=== PATIENT | female | born 1940 | race Caucasian/White ===

== ENCOUNTER 2023-10-30 09:20 | Inpatient (IN) ==
--- NOTE | 2023-10-30 09:41 | Emergency Department Note ---
Impression & Plan Acute CVA (cerebrovascular accident) ED Provider Note Diagnosis: Cerebellar CVA Disposition: Admit CHIEF COMPLAINT: Dizziness HPI: Patient is an 83-year-old female presenting with complaint of dizziness. Patient states symptoms started for the past 3 to 4 days time. Patient states they are worse Sunday and Sunday and then better yesterday. Patient describes the sensation as lightheaded like she feels like she has got a pass out. Patient states at times she feels room spinning dizziness. Patient states this is only with movement and she does not feel room spinning sensation with being at rest. Patient is currently experiencing a headache in the forehead region. Patient is not on any blood thinners and her blood pressure is approximately 200 systolic. Patient denies any focal neurologic deficits arms or legs. Patient denies any active chest pain. PAST MEDICAL HISTORY: See Below PAST SURGICAL HISTORY: See Below SOCIAL HISTORY: See Below HOME MEDICATIONS: See Below ALLERGIES: See Below VITALS: See Below PHYSICAL EXAMINATION: GENERAL: Well appearing, well nourished, NAD, non-toxic. EYE EXAM: Normal conjunctiva. OROPHARYNX: Moist mucus membranes. Grossly normal dentition. NECK: Supple, LUNGS: Clear to auscultation. Normal chest wall mechanics. HEART: NSR ABDOMEN: Abdomen soft, non-tender, normo-active bowel sounds, no masses, no rebound or guarding BACK: No CVA TTP. SKIN: No rashes and no bruising. UPPER EXTREMITIES: Upper extremities are grossly normal LOWER EXTREMITIES: Grossly normal, no edema. NEURO EXAM: A&O x3,, normal speech, 5 out of 5 muscle strength upper and lower extremities bilaterally, Intact sensation upper and lower extremities bilaterally PSYCH: Cooperative MEDICAL DECISION MAKING: History obtained from: Patient ER Course: Patient is an 83-year-old female presenting with complaint of dizziness and lightheadedness. Patient states that symptoms have been ongoing since Sunday which was 4 days prior. Patient states that the dizziness sensation is only present with standing up. Patient's feels lightheaded currently but no active room spinning sensation. Patient is currently experiencing a headache. Patient found to be hypertensive upon arrival with a blood pressure above 200 systolic. Patient had no focal neurologic deficits. Patient given treatment for headache with Compazine and Benadryl. Patient also given meclizine which she threw up. Patient continued to have hypertension even after attempt to treat headache. Patient was given IV labetalol. Patient taken for CT of the head which shows acute to subacute posterior CVA. Patient outside any window for TNK or thrombolytic treatment due to symptoms starting 3 to 4 days prior. Will allow for permissive hypertension. Patient's case will be discussed with hospital service further treatment and evaluation. Labs (independently interpreted) are significant for: No significant electrolyte abnormalities Imaging results (independently interpreted): Chest x-ray clear EKG interpretation (independently interpreted): Normal sinus rhythm no ST segment elevation or depression Medications given: Compazine, Benadryl, normal saline bolus, labetalol x 2 Consultants: Hospitalist service Triage Nursing notes reviewed and agree them. Vital Signs: reviewed and remarkable for: Hypertension Past Med/Surg History Problem List (Updated 10/30/23 @ 11:14 by Chaitanya Jacob DO) Acute CVA (cerebrovascular accident) (Acute) Nocturia Overactive bladder NIDDY (non-insulin dependent diabetes mellitus in young) Cervical facet syndrome H/O knee surgery Hx of breast reduction, elective H/O thyroidectomy Cholecystectomy planned Glaucoma Hyperlipemia Hypothyroid Depression HTN (hypertension) Arthritis DDD (degenerative disc disease) Medical History (Updated 10/30/23 @ 11:14 by Chaitanya Jaocb DO) History of COVID-19 06/18/21 - fatigue, DONALDSON, sore throat Diabetes mellitus niddm Surgical History S/P cataract extraction bilat S/P eye surgery bilat Social History Smoking Status: Never smoker Second Hand Exposure: No; Do You Dip or Chew Tobacco: No; Hx Alcohol Use: Yes Alcohol type: hard liquor Hx Substance Use: No Preferred Language: Greek Communication Ability: Effective Visual Impairment: No Limitations Hearing Ability: Normal Impregnator And Drier Helper Required: No Beliefs That Will Affect Care: None marital status: Current Living Situation: Other Current Living Situation Comment: [facility] current occupational status: retired Feels Safe at Home: Yes Assistive Devices: Cane Allergies Allergies Allergy/AdvReac Type Severity Reaction Status Date / Time No Known Allergies Allergy Verified 10/22/23 10:10 Home Meds Home Medications Medication Instructions Recorded Confirmed atorvastatin 40 mg tablet 40 mg PO QAM 05/11/21 10/22/23 brimonidine 0.1 % eye drops 1 drp ophthalmic (eye) BID 05/11/21 10/22/23 difluprednate 0.05 % eye drops 1 drp ophthalmic (eye) QID 05/11/21 10/22/23 duloxetine 20 mg capsule,delayed 20 mg PO QAM 05/11/21 10/22/23 release (Cymbalta) levothyroxine 100 mcg capsule 100 mcg PO QAM 05/11/21 10/22/23 meloxicam 15 mg tablet 15 mg PO QAM 05/11/21 10/22/23 metformin 500 mg tablet 500 mg PO BID 05/11/21 10/22/23 olmesartan 20 mg tablet 20 mg PO QAM 05/11/21 10/22/23 vitamins A,C,Y-rode-dvtrjj 4,296 1 cap PO BID 05/11/21 10/22/23 mcg-226 mg-90 mg capsule (ICaps AREDS) Previous Rx's Medication Instructions Recorded amlodipine 5 mg tablet 5 mg PO DAILY #30 tabs 01/02/22 mirabegron 25 mg tablet,extended 25 mg PO DAILY Urinary urgency 03/05/23 release 24 hr (Myrbetriq) #30 tabs mirabegron 50 mg tablet,extended 50 mg PO DAILY #90 tabs 05/07/23 release 24 hr (Myrbetriq) nitrofurantoin 100 mg PO Q12H 5 days #10 caps 07/19/23 monohydrate/macrocrystals 100 mg capsule (Macrobid) Results & Data (ED) Vital Signs Vital Signs - 24 hr 10/30/23 09:28 10/30/23 09:30 10/30/23 09:42 Temperature 36.5 C Temperature Source Oral Pulse Rate 76 71 Respiratory Rate 18 Respiratory Effort / Characteristics Non-Labored Spontaneous Blood Pressure 216/97 H Blood Pressure [Right Arm] Blood Pressure Mean 136 Blood Pressure Mean [Right Arm] Blood Pressure Position Lying Pulse Oximetry 98 98 Oxygen Delivery Method Room Air Sepsis Recent Fever Within 48 Hours No Sepsis New/Unexplained Change in Mental Status No Sepsis Action Taken by Nursing No Action Required 10/30/23 09:42 10/30/23 09:54 10/30/23 10:11 Temperature 36.5 C Temperature Source Oral Pulse Rate 89 83 Respiratory Rate 16 19 Respiratory Effort / Characteristics Non-Labored Spontaneous Blood Pressure 212/92 H Blood Pressure [Right Arm] 216/97 H Blood Pressure Mean Blood Pressure Mean [Right Arm] 136 Blood Pressure Position Pulse Oximetry 98 100 Oxygen Delivery Method Room Air Sepsis Recent Fever Within 48 Hours Sepsis New/Unexplained Change in Mental Status Sepsis Action Taken by Nursing 10/30/23 10:29 10/30/23 10:45 10/30/23 11:01 Temperature Temperature Source Pulse Rate 74 70 72 Respiratory Rate Respiratory Effort / Characteristics Blood Pressure 217/92 H 185/115 H 181/86 H Blood Pressure [Right Arm] Blood Pressure Mean Blood Pressure Mean [Right Arm] Blood Pressure Position Pulse Oximetry Oxygen Delivery Method Sepsis Recent Fever Within 48 Hours Sepsis New/Unexplained Change in Mental Status Sepsis Action Taken by Nursing Laboratory Data 10/30/23 09:30 10/30/23 09:30 Lab Results 10/30/23 Range/Units 09:30 WBC 8.35 (4.8-10.8) K/ul RBC 5.09 (4.20-5.40) M/uL Hgb 14.0 (12.0-16.0) g/dl Hct 43.5 (37.0-47.0) % MCV 85.5 (80.0-100.0) fL MCH 27.5 (25.0-34.0) pg MCHC 32.2 (32.0-36.0) g/dL RDW Std Deviation 43.3 (36.4-46.3) fL RDW Coeff of Leila 13.9 (11.5-14.5) % Plt Count 217 (130-400) K/uL MPV 9.9 (9.4-12.4) fL Immature Gran % (Auto) 0.2 % Neut % (Auto) 61.8 % Lymph % (Auto) 25.5 % [place] % (Auto) 5.0 % Eos % (Auto) 6.8 % Baso % (Auto) 0.7 % Neut # (Auto) 5.15 (1.40-6.50) K/uL Lymph # (Auto) 2.13 (1.20-3.40) K/uL [place] # (Auto) 0.42 (0.11-0.59) K/uL Eos # (Auto) 0.57 H (0.00-0.50) K/uL Baso # (Auto) 0.06 (0.00-0.20) K/uL Immature Gran # (Auto) 0.02 (0.01-0.20) K/uL Sodium 139 (136-145) mmol/L Potassium 3.9 (3.5-5.1) mmol/L Chloride 107 (98-107) mmol/L Carbon Dioxide 22 (21-32) mmol/L Anion Gap 10 (3-11) BUN 26 H (6-23) mg/dl Creatinine 1.18 (0.6-1.2) mg/dl Est Cr Clr Drug Dosing 34.3 ml/min Est GFR ( Amer) 49.7 ml/min Est GFR (Non-Af Amer) 42.9 ml/min BUN/Creatinine Ratio 22.0 H (10-20) Glucose 164 H (70-99(Fasting)) mg/dl Calcium 9.8 (8.6-10.3) mg/dl Total Bilirubin 0.5 (0.2-1.0) mg/dl AST 22 (13-39) U/L ALT 21 (7-52) U/L Alkaline Phosphatase 128 H (34-104) U/L Troponin I High Sens 4.3 (0-14) pg/ml Total Protein 7.0 (6.0-8.3) gm/dl Albumin 4.5 (3.4-5.0) gm/dl Globulin 2.5 (2.5-4.0) gm/dl Albumin/Globulin Ratio 1.8 (0.9-2) Administered Medications Discontinued Medications Diphenhydramine HCl (Diphenhydramine 50 Mg/Ml Vial) 25 mg IV NOW STA Stop: 10/30/23 09:36 Last Admin: 10/30/23 09:50 Dose: 25 mg Documented By: CARLIE Sodium Chloride (Nss) 1,000 mls @ 999 mls/hr IV .Q1H1M SABRINA Stop: 10/30/23 10:45 Last Admin: 10/30/23 09:47 Dose: 999 mls/hr Documented By: CARLIE Labetalol HCl (Labetalol Hcl Iv 5 Mg/Ml 20ml) 10 mg IV NOW STA Stop: 10/30/23 10:07 Last Admin: 10/30/23 10:11 Dose: 10 mg Documented By: CARLIE Labetalol HCl (Labetalol Hcl Iv 5 Mg/Ml 20ml) 10 mg IV NOW STA Stop: 10/30/23 10:42 Last Admin: 10/30/23 10:45 Dose: 10 mg Documented By: CARLIE Meclizine HCl (Meclizine Hcl 25 Mg Tab) 25 mg PO NOW STA Stop: 10/30/23 09:36 Last Admin: 10/30/23 09:47 Dose: 25 mg Documented By: CARLIE Ondansetron HCl (Ondansetron Inj 2 Mg/Ml 2 Ml Vial) 4 mg IV NOW STA Stop: 10/30/23 10:02 Last Admin: 10/30/23 10:04 Dose: 4 mg Documented By: CARLIE Prochlorperazine (Prochlorperazine 5 Mg/Ml 2 Ml Vial) 5 mg IV NOW STA Stop: 10/30/23 09:36 Last Admin: 10/30/23 09:48 Dose: 5 mg Documented By: CARLIE Imaging Data Radiologist's Impression: Chest X-Ray 10/30/23 09:35 XR chest 1V portable HISTORY: dizziness COMPARISON: Chest 04/15/2021. FINDINGS: No pneumothorax. No pleural effusions. The lungs are clear. Prior cholecystectomy. The cardiac silhouette remains top normal in size. No evidence for pulmonary edema. No acute fractures. Mild elevation of the right hemidiaphragm. Degenerative changes within the right shoulder. IMPRESSION: No acute process. ACT 112: Negative or not required by law. Electronically signed by: Saturnino Singer M.D. 10/30/2023 10:[address] 10/30/23 09:35 CT head/brain wo con CLINICAL HISTORY: 83 years-old Female with HTN, headache, dizziness. Acute hypertension with headache and dizziness TECHNIQUE: Multiple axial CT images of the head were obtained without contrast. A dose lowering technique was utilized adhering to the principles of ALARA. CT DOSE: 547.75 mGy.cm COMPARISON: 01/02/2022. FINDINGS: No acute intracranial hemorrhage, midline shift, intracranial mass, hydrocephalus, or abnormal extra-axial collection. Involutional changes with suggestion of mild chronic microvascular ischemic disease. There is a 3 cm ill- defined hypodense focus noted involving the medial, mid to inferior aspects of the right cerebellar hemisphere The calvarium is intact. Postoperative changes of the left globe redemonstrated. The paranasal sinuses, mastoid air cells, and middle ear cavities are clear. IMPRESSION: 1. 3 cm acute to subacute appearing ischemic infarct of the right PICA vascular distribution. 2. No acute intracranial hemorrhage or midline shift. ACT 112: Negative or not required by law. The above report was generated using voice recognition software. It may contain grammatical, syntax or spelling errors. Electronically signed by: Cameron Reynolds M.D. 10/30/2023 10:47 AM Discharge Plan Visit Data Chief Complaint: Dizziness Stated Complaint: DIZZINESS, HEADACHE ED Provider: Chaitanya Jacob Discharge Problem: Acute CVA (cerebrovascular accident) Forms Stand Alone Forms: My [facility] Prescriptions Prescriptions: No Action ICaps AREDS [id number] capsule 1 cap PO BID duloxetine [Cymbalta] 20 mg capsule,delayed release(DR/EC) 20 mg PO QAM levothyroxine 100 mcg capsule 100 mcg PO QAM olmesartan 20 mg tablet 20 mg PO QAM metformin 500 mg tablet 500 mg PO BID meloxicam 15 mg tablet 15 mg PO QAM atorvastatin 40 mg tablet 40 mg PO QAM difluprednate 0.05 % drops 1 drp ophthalmic (eye) QID Rx Instructions: start 24 hours after surgery brimonidine 0.1 % drops 1 drp ophthalmic (eye) BID Myrbetriq 25 mg tablet extended release 24 hr 25 mg PO DAILY Qty: 30 0RF Rx Instructions: Take one tablet daily. nitrofurantoin monohyd/m-cryst [Macrobid] 100 mg capsule 100 mg PO Q12H 5 Days Qty: 10 0RF Rx Instructions: must administer with a meal/food Myrbetriq 50 mg tablet extended release 24 hr 50 mg PO DAILY Qty: 90 2RF Rx Instructions: Take one tablet daily. amlodipine 5 mg tablet 5 mg PO DAILY Qty: 30 0RF Referrals Referrals: Indigo Blevins MD [Primary Care Provider] -
[2023-10-30] MEDS: MECLIZINE HCL 25 MG TAB PO STA (09:47)
[2023-10-30] MEDS: SODIUM CHLORIDE 0.9% 1,000 ML IV SCH (09:47)
[2023-10-30 09:48] LABS: Basophils # (auto) 0.06 K/uL (0.00-0.20); Basophils % (auto) 0.7 %; Eosinophils # (auto) 0.57 K/uL (0.00-0.50); Eosinophils % (auto) 6.8 %; Hematocrit (blood only) 43.5 % (37.0-47.0); Immature Granulocytes # (auto) 0.02 K/uL (0.01-0.20); Immature Granulocytes % (auto) 0.2 %; Lymphocytes # (auto) 2.13 K/uL (1.20-3.40); Lymphocytes % (auto) 25.5 %; Mean Corpuscular Hemoglobin 27.5 pg (25.0-34.0); Mean Corpuscular Hgb Conc 32.2 g/dL (32.0-36.0); Mean Corpuscular Volume 85.5 fL (80.0-100.0); Mean Platelet Volume 9.9 fL (9.4-12.4); Monocytes # (auto) 0.42 K/uL (0.11-0.59); Neutrophils # (auto) 5.15 K/uL (1.40-6.50); Neutrophils % (auto) 61.8 %; Platelet Count 217 K/uL (130-400); RDW Coefficient of Variation 13.9 % (11.5-14.5); RDW Standard Deviation 43.3 fL (36.4-46.3); Red Blood Count 5.09 M/uL (4.20-5.40); White Blood Count 8.35 K/ul (4.8-10.8)
[2023-10-30] MEDS: PROCHLORPERAZINE 5 MG/ML 2 ML VIAL IV STA (09:48)
[2023-10-30] MEDS: diphenhydrAMINE 50 MG/ML VIAL IV STA (09:50)
[2023-10-30] MEDS: ONDANSETRON INJ 2 MG/ML 2 ML VIAL IV STA (10:04)
[2023-10-30 10:05] LABS: Albumin Globulin Ratio 1.8 (0.9-2); Albumin Level 4.5 gm/dl (3.4-5.0); Bilirubin,Total 0.5 mg/dl (0.2-1.0); Calcium 9.8 mg/dl (8.6-10.3); Creatinine Clr Calc Pharmacy 34.3 ml/min; Est GFR (African American) 49.7 ml/min; Est GFR (Non-African American) 42.9 ml/min; Globulin 2.5 gm/dl (2.5-4.0); Potassium 3.9 mmol/L (3.5-5.1)
[2023-10-30 10:11] LABS: Troponin I High Sensitivity 4.3 pg/ml (0-14)
[2023-10-30] MEDS: LABETALOL HCL IV 5 MG/ML 20ML IV STA ×2 (10:11→10:45)
--- NOTE | 2023-10-30 10:50 | CT Scan Report ---
CT head/brain wo con CLINICAL HISTORY: 83 years-old Female with HTN, headache, dizziness. Acute hypertension with headach e and dizziness TECHNIQUE: Multiple axial CT images of the head were obtained without contrast. A dose lowering tech nique was utilized adhering to the principles of ALARA. CT DOSE: 547.75 mGy.cm COMPARISON: 01/02/2022. FINDINGS: No acute intracranial hemorrhage, midline shift, intracranial mass, hydrocephalus, or abnormal extra- axial collection. Involutional changes with suggestion of mild chronic microvascular ischemic disease . There is a 3 cm ill-defined hypodense focus noted involving the medial, mid to inferior aspects of the right cerebellar hemisphere The calvarium is intact. Postoperative changes of the left globe redemonstrated. The paranasal sinuse s, mastoid air cells, and middle ear cavities are clear. IMPRESSION: 1. 3 cm acute to subacute appearing ischemic infarct of the right PICA vascular distribution. 2. No acute intracranial hemorrhage or midline shift. ACT 112: Negative or not required by law. The above report was generated using voice recognition software. It may contain grammatical, syntax o r spelling errors. Electronically signed by: Cameron Reynolds M.D. 10/30/2023 10:47 AM
--- NOTE | 2023-10-30 10:58 | XRay Report ---
XR chest 1V portable HISTORY: dizziness COMPARISON: Chest 04/15/2021. FINDINGS: No pneumothorax. No pleural effusions. The lungs are clear. Prior cholecystectomy. The card iac silhouette remains top normal in size. No evidence for pulmonary edema. No acute fractures. Mild elevation of the right hemidiaphragm. Degenerative changes within the right shoulder. IMPRESSION: No acute process. ACT 112: Negative or not required by law. Electronically signed by: Saturnino Singer M.D. 10/30/2023 10:57 AM
--- NOTE | 2023-10-30 11:08 | History & Physical Report ---
Date of Service October 30, 2023 Assessment & Plan (1) Acute CVA (cerebrovascular accident): Plan: Admit to the PCU on telemetry Currently stable and nontoxic-appearing Presented to the ED with progressive lightheadedness/dizziness/nausea with nonbloody emesis and headache since 10/26/23 Noted to be significant hypertensive on arrival with systolic blood pressures as high as 240 mmHg No acute EKG changes CT of the head without contrast obtained today notes a acute to subacute 3 cm ischemic infarct of the right PICA vascular distribution without signs of hemorrhage or midline shift Will obtain CTA of the head and neck with contrast, MRI of the brain without contrast, and CT on admission for further evaluation Received 2 doses 10 mg IV labetalol in the ED due to significant hypertension with systolic blood pressures in the 240s, blood pressure is currently stable with systolic blood pressure in the 180s For now continue with permissive hypertension for the next 24 hours but will have as needed IV labetalol for systolic blood pressure greater than 200 mmHg and/or diastolic greater than 110 mmHg Fall/aspiration precautions, PT/OT consults placed Will consult neurology to follow Was given 324 mg aspirin in the ED prior to admission, will continue with 81 mg daily tomorrow Had been on 40 mg atorvastatin daily, will give 80 mg now and plan to continue with 80 mg tomorrow, follow fasting lipid panel tomorrow morning Every 4 hours neuro checks Bilateral SHADY stockings for DVT prophylaxis Heart healthy/DM type II diet AM CBC, BMP, mag, PT/INR, fasting lipid panel, hemoglobin A1c (2) Cat bite of forearm: Plan: Patient was bitten by her cat on 10/29/2023 and has a small healing skin tear with surrounding erythema Patient confirms cat is up-to-date on vaccinations including rabies and patient had her last tetanus booster last year Will start Unasyn for now as she is still experiencing recurrent nausea/vomiting from her CVA Will transition her to p.o. Augmentin when nausea/vomiting has resolved Communication order placed to outline current erythema with a surgical marker for close monitoring moving forward (3) Hypothyroid: Plan: Continue levothyroxine (4) HTN (hypertension): Plan: Continue permissive hypertension as outlined in acute CVA plan (5) Diabetes mellitus: Plan: Hold metformin Monitor BSG ACHS, goal is [id number] Start CF of 50 and CR of 15 ACHS for now Adjust regimen as needed Plan The patient was discussed with Dr. Dougherty at the time of the admission History of Present Illness Chief Complaint: Dizziness, HTN Primary Care Provider: Indigo Blevins MD Ann is an 83-year-old female with a past medical history significant for hypertension, DMII, hyperlipidemia, hypothyroidism, depression, and glaucoma who presented to [facility] ED on 10/30/2023 with complaints of dizziness and hypertension which initially started on 10/26/2023. On arrival to the ED she was noted to be hypertensive at 216/97 but otherwise stable. Labs including CBC, CMP, and high-sensitivity troponin were unremarkable. CT of the head/brain without contrast was read as a 3 cm acute to subacute appearing ischemic infarct of the right PICA vascular distribution. No acute intracranial hemorrhage or midline shift. Chest x-ray was read as negative for acute findings. Prior to admission the patient had been given 1 L normal saline, 5 mg per oh chlor perazine, 4 mg IV Zofran, 25 mg p.o. meclizine, 25 mg diphenhydramine, 324 mg aspirin, and 2 doses of 10 mg IV labetalol. Patient was sitting in bed in no acute distress at time of exam with her sitting bedtime, history is obtained from both. The patient states that she initially felt mildly lightheaded/dizzy on 10/26/2023. Starting on 10/27/2023 the patient's symptoms significantly increased including lightheaded/dizziness with a sensation that the room was spinning at times, nausea with nonbloody emesis, intermittent headache, and right-sided upper extremity weakness. Her dizziness became so severe that she was concerned she would fall but did not actually fall at home. States that she has not been on the amlodipine for some time, has continued her home atorvastatin, metformin, and confirms she has not been on outpatient antihypertensives recently. Denies recent changes in vision, hearing, smell, but feels like her taste has been off over the past few days. Denies recent chest pain, shortness of breath, cough, abdominal pain, dysuria/hematuria, diarrhea, lower extremity swelling. When asked, she states that the move on right forearm erythema is due to a cat bite from her home cat which occurred yesterday (10/29/2023). She confirms that her cat is up-to-date on vaccinations including rabies and states that she received a tetanus booster last summer as her cat bit her on the leg. Denies recent fever/chills or pain at the site of the bite. Confirms she has no history of antibiotic allergies. From she is a full code and would want her to make medical decisions for her if she can make them herself. Please refer to Dr. Dougherty's attestation for any changes to the treatment plan Allergies Allergy/AdvReac Type Severity Reaction Status Date / Time No Known Allergies Allergy Verified 10/22/23 10:10 Home Medications Medication Instructions Recorded Confirmed Type atorvastatin 40 mg tablet 40 mg PO QAM 05/11/21 10/22/23 History brimonidine 0.1 % eye drops 1 drp ophthalmic (eye) BID 05/11/21 10/22/23 History difluprednate 0.05 % eye drops 1 drp ophthalmic (eye) QID 05/11/21 10/22/23 History duloxetine 20 mg capsule,delayed 20 mg PO QAM 05/11/21 10/22/23 History release (Cymbalta) levothyroxine 100 mcg capsule 100 mcg PO QAM 05/11/21 10/22/23 History meloxicam 15 mg tablet 15 mg PO QAM 05/11/21 10/22/23 History metformin 500 mg tablet 500 mg PO BID 05/11/21 10/22/23 History olmesartan 20 mg tablet 20 mg PO QAM 05/11/21 10/22/23 History vitamins A,C,G-nyha-dqqcux 4,296 1 cap PO BID 05/11/21 10/22/23 History mcg-226 mg-90 mg capsule (ICaps AREDS) amlodipine 5 mg tablet 5 mg PO DAILY #30 tabs 01/02/22 10/22/23 Rx mirabegron 50 mg tablet,extended 50 mg PO DAILY #90 tabs 05/07/23 10/22/23 Rx release 24 hr (Myrbetriq) dorzolamide 22.3 mg-timolol 6.8 1 drp OPB BID 10/30/23 History mg/mL eye drops Past Med/Surg History Problem List (Updated 10/30/23 @ 12:11 by Chaitanya Nuñez PA-C) Cat bite of forearm Acute CVA (cerebrovascular accident) (Acute) Nocturia Overactive bladder NIDDY (non-insulin dependent diabetes mellitus in young) Cervical facet syndrome H/O knee surgery Hx of breast reduction, elective H/O thyroidectomy Cholecystectomy planned Glaucoma Hyperlipemia Hypothyroid Depression HTN (hypertension) Arthritis DDD (degenerative disc disease) Medical History (Updated 10/30/23 @ 12:11 by Chaitanya Nuñez PA-C) History of COVID-19 06/18/21 - fatigue, DONALDSON, sore throat Diabetes mellitus niddm Surgical History S/P cataract extraction bilat S/P eye surgery bilat Social History Smoking Status: Never smoker Second Hand Exposure: No; Do You Dip or Chew Tobacco: No; Hx Alcohol Use: Yes Alcohol type: hard liquor Hx Substance Use: No Preferred Language: Latvian Communication Ability: Effective Visual Impairment: No Limitations Hearing Ability: Normal Hat Liner Required: No Beliefs That Will Affect Care: None marital status: Current Living Situation: Other Current Living Situation Comment: [facility] current occupational status: retired Feels Safe at Home: Yes Assistive Devices: Cane Physical Exam Physical Exam: Physical Exam: General: In no acute distress, stated age, well-nourished, nontoxic-appearing HEENT: Normocephalic, atraumatic, no scleral icterus, left pupil is misshapen from previous cataract surgery with right pupil round and reactive to light, moist mucus membranes, trachea midline, no thyromegaly Chest/Pulm: No respiratory distress, symmetrical chest expansion, clear breath sounds throughout Cardiac: RRR, no murmurs noted Abdomen: Negative for ascites and bruising, normoactive bowel sounds, soft, non-tender to palpation throughout Musculoskeletal: Symmetrical and without signs of acute trauma Extremities: Radial, dorsalis pedis, and posterior tibial pulses are intact and symmetrical, no edema noted in the BL LE's Skin: Patient with small scab on the right medial forearm due to recent cat bite with surrounding erythema without signs of drainage or fluctuance, no signs of tracking approximately Neuro: Alert and oriented to person, place, month, year, and president, no focal defects, CN II-XII tested and intact, positive pronator drift in the right upper extremity compared to left, 4+ strength in the right upper extremity with 5/strength in the left upper extremity, 5+ strength in the bilateral lower extremities, no tremors noted Psych: No acute distress, calm and cooperative during the exam Results & Data Results & Data Vital Signs (Past 12 Hours) Vital Signs Temp Pulse Resp BP BP Pulse Ox O2 Del Method 10/30/23 11:01 72 181/86 H 10/30/23 10:45 70 185/115 H 10/30/23 10:29 74 217/92 H 10/30/23 10:11 83 212/92 H 10/30/23 09:54 89 19 100 10/30/23 09:42 36.5 C 16 216/97 H 98 Room Air 10/30/23 09:42 98 Room Air 10/30/23 09:30 36.5 C 71 18 216/97 H 98 10/30/23 09:28 76 Laboratory Results Abnormal lab results 10/30/23 10/30/23 Range/Units 09:30 11:34 Eos # (Auto) 0.57 H (0.00-0.50) K/uL BUN 26 H (6-23) mg/dl BUN/Creatinine Ratio 22.0 H (10-20) Glucose 164 H (70-99(Fasting)) mg/dl POC Glucose 108 H (70-99) mg/dl Alkaline Phosphatase 128 H (34-104) U/L Diagnostic Findings Chest X-Ray 10/30/23 09:35 XR chest 1V portable HISTORY: dizziness COMPARISON: Chest 04/15/2021. FINDINGS: No pneumothorax. No pleural effusions. The lungs are clear. Prior cholecystectomy. The cardiac silhouette remains top normal in size. No evidence for pulmonary edema. No acute fractures. Mild elevation of the right hemidiaphragm. Degenerative changes within the right shoulder. IMPRESSION: No acute process. ACT 112: Negative or not required by law. Electronically signed by: Saturnino Singer M.D. 10/30/2023 10:[address] 10/30/23 09:35 CT head/brain wo con CLINICAL HISTORY: 83 years-old Female with HTN, headache, dizziness. Acute hypertension with headache and dizziness TECHNIQUE: Multiple axial CT images of the head were obtained without contrast. A dose lowering technique was utilized adhering to the principles of ALARA. CT DOSE: 547.75 mGy.cm COMPARISON: 01/02/2022. FINDINGS: No acute intracranial hemorrhage, midline shift, intracranial mass, hydrocephalus, or abnormal extra-axial collection. Involutional changes with suggestion of mild chronic microvascular ischemic disease. There is a 3 cm ill- defined hypodense focus noted involving the medial, mid to inferior aspects of the right cerebellar hemisphere The calvarium is intact. Postoperative changes of the left globe redemonstrated. The paranasal sinuses, mastoid air cells, and middle ear cavities are clear. IMPRESSION: 1. 3 cm acute to subacute appearing ischemic infarct of the right PICA vascular distribution. 2. No acute intracranial hemorrhage or midline shift. ACT 112: Negative or not required by law. The above report was generated using voice recognition software. It may contain grammatical, syntax or spelling errors. Electronically signed by: Cameron Reynolds M.D. 10/30/2023 10:47 AM ECG Additional Comments: Normal sinus rhythm without acute ST segment or T wave changes Code Status & VTE Plan Code Status Full code VTE Prophylaxis Plan VTE Prophylaxis will be ordered: Yes Supervising Physician Co-Signing Physician Notes Patient seen and examined, chart reviewed, case discussed with Chaitanya Nuñez PA-C and I agree with the assessment and plan as above except as otherwise noted Labs and images reviewed 83-year-old female with a past medical history of type II DM, hypothyroidism, hypertension, hyperlipidemia, depression, corneal transplant, and cervicalgia who presents to the ER with dizziness over 3-4 days. There were no focal strength or sensory deficits on initial ER assessment. 3-day duration of symptoms TNKase was not indicated. Patient endorses feeling lightheaded, like the room is spinning. CThead shows a 3 cm acute to subacute ischemic infarct of the right PICA. Trace RUE asymmetrical weakness on exam, otherwise no strenght or sensory deficits on admitting exam. MRI pending Angios pending DAPT x 3 weeks then statin monotherapy Additional recommendations pending angio evaluation Echo with bubble study pending Given duration of symptoms likely outside of need for pHTN parameters, decreased control parameters to 200/100 for 24 hours and then to typical goal of less than 180 Agree with above PG Care Time/CCT Total # of Minutes Spent Total Time Spent with Patient: Total time spent is greater than 50% in coordination of care (as documented) at patient's floor/unit and/or counseling patient: Coding [place] [address] INT INP/OBS CARE 375MIN Patient Type Established History Comprehensive Exam Comprehensive Medical Decision Making High Complexity Diagnoses Acute CVA (cerebrovascular accident) I63.9 Cat bite of forearm S51.859A; W55.01XA Hypothyroid E03.9 HTN (hypertension) I10 Diabetes mellitus E11.9
[2023-10-30] MEDS ORDERED: PHARMACIST DISCHARGE MED REC CONSULT PRN (11:15)
[2023-10-30] MEDS ORDERED: DEXTROSE 50% 50 ML SYRINGE IV PRN (11:18)
[2023-10-30] MEDS ORDERED: GLUCAGON FOR INJ 1 MG VIAL SQ PRN (11:18)
[2023-10-30] MEDS ORDERED: GLUCOSE 40% GEL 15 GM TUBE PO PRN (11:18)
[2023-10-30] MEDS ORDERED: CARBOHYDRATES FOR HYPOGLYCEMIA PO PRN (11:18)
[2023-10-30] MEDS ORDERED: GLUCOSE 10 TAB/TUBE PO PRN (11:18)
[2023-10-30] MEDS ORDERED: ACETAMINOPHEN 325 MG TAB PO PRN ×2 (11:19→15:00)
[2023-10-30] MEDS ORDERED: LABETALOL HCL IV 5 MG/ML 20ML IV PRN ×2 (11:20→12:20)
[2023-10-30] MEDS: ASPIRIN CHEW 324 MG PO STA (11:51)
[2023-10-30] MEDS ORDERED: ONDANSETRON INJ 2 MG/ML 2 ML VIAL IV PRN (11:53)
[2023-10-30] MEDS: OPTIRAY 320 100ml IV ONE (12:11)
[2023-10-30] MEDS: ACETAMINOPHEN 500 MG TAB PO STA (12:24)
--- NOTE | 2023-10-30 12:35 | CT Scan Report ---
NECK CTA HISTORY: acute CVA on CT head/brain TECHNIQUE: Multiaxial CT images of the neck were performed following the intravenous administration o f contrast to evaluate the major cervical vessels. 3D/MIP images were also obtained. Sagittal and cor onal reformats were reviewed. All measurements were calculated based on NASCET criteria. A dose low ering technique was utilized adhering to the principles of ALARA. COMPARISON STUDY: Head CT 10/30/2023. FINDINGS: The aortic arch and proximal great vessels are widely patent. There is again noted a focal hypodensity within the inferior right cerebellar hemisphere consistent with the acute to subacute in farct. There is focal high-grade stenosis/occlusion within the distal right posterior inferior cerebe llar artery likely corresponding to the area of infarct. There is mild irregularity within the lumen of the mid right posterior inferior cerebellar artery. In addition, there is multifocal areas of high -grade stenosis/occlusion within the proximal right vertebral artery from the takeoff to the level of the C6 vertebral body. This is highly suspicious for a vertebral artery dissection. The mid to dista l right vertebral artery appears patent. Mild irregularity within the distal vertebral arteries at th e C1-C2 levels as well as mild irregularity in the mid to distal bilateral internal carotid arteries. This favors fibromuscular dysplasia. Mild calcified plaque within the bilateral carotid bifurcations . However, no significant stenosis, occlusion, or dissection within the bilateral common carotid or i nternal carotid arteries. IMPRESSION: 1. 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 2. There is again noted a focal hypodensity within the inferior right cerebellar hemisphere consisten t with the acute to subacute infarct. There is focal high-grade stenosis/occlusion within the distal right posterior inferior cerebellar artery likely corresponding to the area of infarct. 3. No significant stenosis, occlusion, or dissection within the carotid arteries. 4. Mild irregularity within the distal vertebral arteries and mid to distal bilateral internal caroti d arteries suggestive of fibromuscular dysplasia. ACT 112: Negative or not required by law. Electronically signed by: Saturnino Singer M.D. 10/30/2023 12:33 PM
--- NOTE | 2023-10-30 12:43 | CT Scan Report ---
CTA ANGIOGRAPHY OF THE HEAD CLINICAL HISTORY: acute CVA on CT head/brain COMPARISON STUDY: Head CT performed earlier today. TECHNIQUE: Helical axial images of the head were obtained following uneventful intravenous administr ation of 118 cc of Optiray. Sagittal and coronal reconstructions were viewed as well as maximal inten sity projections on an independent 3-D workstation. Automated exposure control was utilized for the study. A dose lowering technique was utilized adhering to the principles of ALARA. FINDINGS: There is abrupt cut off of the right posterior inferior cerebellar artery on image 46 of 23 7 which corresponds to the infarct shown within the right cerebellar hemisphere on head CT performed earlier today. No additional sites of vessel occlusion are identified. No intracranial aneurysm. Ther e is moderate stenosis within the proximal left middle cerebral artery. There is moderate to severe s tenosis at the origin of the left P1 segment. There is no intracranial aneurysm. IMPRESSION: 1. 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 No additional sites of vessel occlusion within the intracranial circulation. 2. Multifocal stenoses within the intracranial circulation, as described above. ACT 112: Negative or not required by law. Electronically signed by: Yash Smith M.D. 10/30/2023 12:41 PM
[2023-10-30] MEDS: ATORVASTATIN 40 MG TAB PO STA (12:57)
[2023-10-30] MEDS: INSULIN ASPART PER UNIT CHARGE SC SCH (12:58)
[2023-10-30] MEDS: AMPICILLIN/SULBACTAM SOD 3,000 MG/100 ML BAG IV STA (13:05)
[2023-10-30] MEDS: CLOPIDOGREL BISULFATE 300 MG TAB PO STA (13:09)
--- NOTE | 2023-10-30 13:24 | Electrocardiogram Report ---
Test Reason : Blood Pressure : */* mmHG Vent. Rate : 77 BPM Atrial Rate : 77 BPM P-R Int : 158 ms QRS Dur : 84 ms QT Int : 376 ms P-R-T Axes : 53 -52 68 degrees QTcB Int : 425 ms Normal sinus rhythm Left anterior fascicular block Abnormal ECG When compared with ECG of 02-Jan-2022 10:51, No significant change was found Confirmed by Bhaskar Lyons ([id number]) on 10/30/2023 1:24:17 PM Referred By: REFERRED SELF Confirmed By: Bhaskar Lyons
--- NOTE | 2023-10-30 15:56 | XCELERA ---
[id number]___[id number]
[2023-10-30] MEDS: AMPICILLIN/SULBACTAM SOD 3,000 MG/100 ML BAG IV SCH (19:29)
[2023-10-30] MEDS: DULoxetine HCL 20 MG CAP PO SCH (21:06)
[2023-10-30] MEDS: DORZOLAMIDE/TIMOLOL 22.3/6.8MG/ML 10 ML BTL OPB SCH (21:06)
--- NOTE | 2023-10-30 22:24 | Magnetic Resonance Report ---
Exam(s): MRI HEAD Without Contrast EXAM: MR Head Without Intravenous Contrast CLINICAL HISTORY: Reason for exam: CVA on CT head/brain wo con. TECHNIQUE: Magnetic resonance images of the head/brain without intravenous contrast in multiple planes. COMPARISON: Reference is made to prior CT performed earlier on the same date. FINDINGS: Brain: Acute infarction involving the medial aspect of the right cerebellar hemisphere. No acute intracranial hemorrhage. Moderate cerebral volume loss. Ventricles: Unremarkable. No ventriculomegaly. Bones/joints: Unremarkable. No acute fracture. Sinuses: Unremarkable as visualized. No acute sinusitis. Mastoid air cells: Unremarkable as visualized. No mastoid effusion. Orbits: Unremarkable as visualized. IMPRESSION: Acute right cerebellar hemispheric infarct. Electronically signed by: Suleiman Perdomo MD 10/30/23 22:23 PM
[2023-10-31] MEDS: LEVOTHYROXINE SODIUM 100 MCG TABLET PO SCH (05:35)
[2023-10-31 07:06] LABS: Basophils # (auto) 0.06 K/uL (0.00-0.20); Basophils % (auto) 0.7 %; Eosinophils # (auto) 0.84 K/uL (0.00-0.50); Eosinophils % (auto) 9.4 %; Hematocrit (blood only) 35.9 % (37.0-47.0); Hemoglobin 11.9 g/dl (12.0-16.0); Immature Granulocytes # (auto) 0.02 K/uL (0.01-0.20); Immature Granulocytes % (auto) 0.2 %; Lymphocytes # (auto) 2.87 K/uL (1.20-3.40); Lymphocytes % (auto) 32.2 %; Mean Corpuscular Hemoglobin 27.8 pg (25.0-34.0); Mean Corpuscular Hgb Conc 33.1 g/dL (32.0-36.0); Mean Corpuscular Volume 83.9 fL (80.0-100.0); Mean Platelet Volume 9.8 fL (9.4-12.4); Monocytes # (auto) 0.65 K/uL (0.11-0.59); Monocytes % (auto) 7.3 %; Neutrophils # (auto) 4.46 K/uL (1.40-6.50); Neutrophils % (auto) 50.2 %; Platelet Count 196 K/uL (130-400); RDW Coefficient of Variation 14.2 % (11.5-14.5); RDW Standard Deviation 43.7 fL (36.4-46.3); Red Blood Count 4.28 M/uL (4.20-5.40)
[2023-10-31 07:19] LABS: BUN Creatinine Ratio 18.3 (10-20); Calcium 8.8 mg/dl (8.6-10.3); Chol HDL Ratio 2.5 (0-5); Creatinine Clr Calc Pharmacy 35.2 ml/min; Est GFR (African American) 51.3 ml/min; Est GFR (Non-African American) 44.3 ml/min; Magnesium 1.8 mg/dl (1.7-2.4); Potassium 3.7 mmol/L (3.5-5.1)
[2023-10-31 07:26] LABS: Prothrombin Time 10.8 Seconds (9.0-12.0)
[2023-10-31 07:53] LABS: Estimated Average Glucose 137 mg/dl; Hemoglobin A1C 6.4 % (4.5-5.6)
[2023-10-31] MEDS: CLOPIDOGREL BISULFATE 75 MG TAB PO SCH (08:26)
[2023-10-31] MEDS: ATORVASTATIN 40 MG TAB PO SCH (08:26)
[2023-10-31] MEDS: ASPIRIN 81 MG ECTAB PO SCH (08:27)
[2023-10-31] MEDS: VIBEGRON 75 MG TAB PO SCH (08:27)
--- NOTE | 2023-10-31 08:54 | Hospitalist Progress Note ---
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 - Systolic BP in 240s on admission, since resolved Permissive hypertension for 24 hours after admission but will have as needed IV labetalol for systolic blood pressure greater than 200 mmHg and/or diastolic greater than 110 mmHg Fall/aspiration precautions - PT/OT recommending d/c home with assistance from spouse as needed and [facility] (order placed by CM) Will consult neurology to follow Was given 324 mg aspirin in the ED prior to admission, will continue with 81 mg daily tomorrow Had been on 40 mg atorvastatin daily, will give 80 mg now and plan to continue with 80 mg - A1C stable, PT/INR WNL, lipid panel WNL - Echo showed no significant valvular disease, Grade 1 diastolic dysfunction, EF 65-70% Every 4 hours neuro checks (2) Cat bite of forearm: Plan: Patient was bitten by her cat on 10/29/2023 and has a small healing skin tear with surrounding erythema Patient confirms cat is up-to-date on vaccinations including rabies and patient had her last tetanus booster last year Will start Unasyn for now as she is still experiencing recurrent nausea/vomiting from her CVA Will transition her to p.o. Augmentin when nausea/vomiting has resolved Communication order placed to outline current erythema with a surgical marker for close monitoring moving forward (3) HTN (hypertension): Plan: Noted to be significantly hypertensive on admission with systolic blood pressures as high as 240 mmHg; since resolved Received 2 doses 10 mg IV labetalol in the ED due to significant hypertension with systolic blood pressures in the 240s Continue permissive hypertension as outlined in acute CVA plan - was on amlodipine at home (4) Diabetes mellitus: Plan: Hold metformin Monitor BSG ACHS, goal is [id number] Start CF of 50 and CR of 15 ACHS for now - A1C 10/31/23 6.4% Adjust regimen as needed Plan VTE ppx: Bilateral SHADY stockings Diet: Heart healthy/DM type II Code status: Full Code Chronic stable diagnoses: hypothyroidism - continue home levothyroxine overactive bladder - continue Gemtesa depression - continue Cymbalta Glaucoma - continue Cosopt Admission and Anticipated Discharge Date Admission Date: October 30, 2023 Review of Systems Review of Systems: See HPI Results & Data Results & Data Vital Signs (Past 12 Hours) Vital Signs Temp Pulse Pulse Resp BP BP Pulse Ox 10/31/23 07:05 36.6 C 70 17 146/79 H 98 10/31/23 03:28 36.9 C 70 18 120/77 94 10/31/23 00:11 64 10/30/23 22:46 36.9 C 72 18 121/71 96 O2 Del Method 10/31/23 07:05 Room Air 10/31/23 03:28 Room Air 10/31/23 00:11 10/30/23 22:46 Room Air PG Care Time/CCT Total # of Minutes Spent Total Time Spent with Patient: Total time spent is greater than 50% in coordination of care (as documented) at patient's floor/unit and/or counseling patient: Coding Diagnoses Acute CVA (cerebrovascular accident) I63.9 Cat bite of forearm S51.859A; W55.01XA HTN (hypertension) I10 Diabetes mellitus E11.9
--- NOTE | 2023-10-31 10:14 | Neurology Consultation ---
Date of Consultation October 31, 2023 Assessment & Plan (1) Acute CVA (cerebrovascular accident): History of Present Illness Attending Physician: Harinder Lozano MD History of Present Illness S:pt this morning feeling well with minimal symptoms. not much balance issue. walked with Physical therapy the entire [place] and only had slight imbalance with one turn. no weakness. no speech problem. MRI brain noted for ischemic rt PICA infart. CTA showing rt vert stenosis/block, maybe dissection (undetermined age). echo negative. pt clinically stable. pt does report having headache 5 days ago and taking ASA one time. no prior hx of stroke and she never took antiplatelet meds. Admission HPI: Ann is an 83-year-old female with a past medical history significant for hypertension, DMII, hyperlipidemia, hypothyroidism, depression, and glaucoma who presented to [facility] ED on 10/30/2023 with complaints of dizziness and hypertension which initially started on 10/26/2023. On arrival to the ED she was noted to be hypertensive at 216/97 but otherwise stable. Labs including CBC, CMP, and high-sensitivity troponin were unremarkable. CT of the head/brain without contrast was read as a 3 cm acute to subacute appearing ischemic infarct of the right PICA vascular distribution. No acute intracranial hemorrhage or midline shift. Chest x-ray was read as negative for acute findings. Prior to admission the patient had been given 1 L normal saline, 5 mg per oh chlor perazine, 4 mg IV Zofran, 25 mg p.o. meclizine, 25 mg diphenhydramine, 324 mg aspirin, and 2 doses of 10 mg IV labetalol. Patient was sitting in bed in no acute distress at time of exam with her sitting bedtime, history is obtained from both. The patient states that she initially felt mildly lightheaded/dizzy on 10/26/2023. Starting on 10/27/2023 the patient's symptoms significantly increased including lightheaded/dizziness with a sensation that the room was spinning at times, nausea with nonbloody emesis, intermittent headache, and right-sided upper extremity weakness. Her dizziness became so severe that she was concerned she would fall but did not actually fall at home. States that she has not been on the amlodipine for some time, has continued her home atorvastatin, metformin, and confirms she has not been on outpatient antihypertensives recently. Denies recent changes in vision, hearing, smell, but feels like her taste has been off over the past few days. Denies recent chest pain, shortness of breath, cough, abdominal pain, dysuria/hematuria, diarrhea, lower extremity swelling. When asked, she states that the move on right forearm erythema is due to a cat bite from her home cat which occurred yesterday (10/29/2023). She confirms that her cat is up-to-date on vaccinations including rabies and states that she received a tetanus booster last summer as her cat bit her on the leg. Denies recent fever/chills or pain at the site of the bite. Confirms she has no history of antibiotic allergies. From she is a full code and would want her to make medical decisions for her if she can make them herself. Allergies Allergy/AdvReac Type Severity Reaction Status Date / Time No Known Allergies Allergy Verified 10/22/23 10:10 Home Medications Medication Instructions Recorded Confirmed Type atorvastatin 40 mg tablet 40 mg PO QAM 05/11/21 10/30/23 History duloxetine 20 mg capsule,delayed 20 mg PO BID 05/11/21 10/30/23 History release (Cymbalta) levothyroxine 100 mcg capsule 100 mcg PO QAM 05/11/21 10/30/23 History metformin 500 mg tablet 500 mg PO BID 05/11/21 10/30/23 History olmesartan 20 mg tablet (Benicar) 20 mg PO UD 05/11/21 10/30/23 History amlodipine 5 mg tablet 5 mg PO UD 10/30/23 10/30/23 History dorzolamide 22.3 mg-timolol 6.8 1 drp OPB BID 10/30/23 10/30/23 History mg/mL eye drops mirabegron 50 mg tablet,extended 50 mg PO UD 10/30/23 10/30/23 History release 24 hr (Myrbetriq) Patient History Medical History (Updated 10/30/23 @ 12:11 by Chaitanya Nuñez PA-C) History of COVID-19 06/18/21 - fatigue, [place], sore throat Diabetes mellitus niddm Surgical History S/P cataract extraction bilat S/P eye surgery bilat Social History Smoking Status: Never smoker Second Hand Exposure: No; Do You Dip or Chew Tobacco: No; Hx Alcohol Use: No Hx Substance Use: No Preferred Language: Kyrgyz Communication Ability: Effective Visual Impairment: No Limitations Hearing Ability: Normal Circulation Representative Required: No Beliefs That Will Affect Care: None marital status: Current Living Situation: Spouse Current Living Situation Comment: [facility] current occupational status: retired Other Information That Helps Us Care for You: No Feels Safe at Home: Yes Safety Concerns: Feels Safe At This Time Assistive Devices: Cane and Walker Review of Systems Review of Systems: All systems reviewed & are unremarkable except as noted in Subjective Constitutional: as per Subjective / HPI Eyes: as per Subjective / HPI Ear, Nose, Mouth, Throat: as per Subjective / HPI Respiratory: as per Subjective / HPI Cardiovascular: as per Subjective / HPI Gastrointestinal: as per Subjective / HPI Musculoskeletal: as per Subjective / HPI Integumentary: as per Subjective / HPI Neurologic: as per Subjective / HPI Psychiatric: as per Subjective / HPI Endocrine: as per Subjective / HPI Hematologic / Lymphatic: as per Subjective / HPI Allergy / Immunological: as per Subjective / HPI Exam (Neuro) Physical Exam: HEENT: normocephalic Neuro: Mental: AOx4, fluent speech, normal comprehension, no apraxia, no L/R confusion, no neglect CN: PERRL, Full EOM, symmetric face, midline T/U/P, 5/5 SCM/traps. Motor: No abnormal movements, normal tone and bulk, 5/5 t/o bilaterally Sens: intact to touch b/l grossly, negative romberg. Coord: intact FNT b/l and finger to toes b/l. DTR: 2+ sym b/l Gait: intact grossly with narrow base. some difficulty with tandem (pt states this is chronic in nature). 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 pt clinically doing very well without much deficits. CTA finding of fibromuscular dysplasia appearance is likely incident and it is mild in nature. she likely had her initial stroke start 5 days or more when she was having headache at that time. Recommendations: -after consideration for anticoagulation based on CTA findings, since pt is doing very well and it is undetermined age and appears chronic in nature, DAPT is reasonable at this point rather than anticoagulation therapy. 2. antiplatelet therapy: * DAPT : Continue DAPT for 90 days . After that, can continue single antiplatelet therapy (either ASA or Plavix). 3. Images: TTE with bubble negative. arlin o consider checking renal artery stenosis in the future as routine work up given her report of mild fibromuscular dysplasia. 4. Permissive Hypertension for next 24 h rs. Keep SBP goal range less than 220. Avoid hypotension. Do not stop beta-yoan if on it. 6. Long-term SBP goal less than 130. 7. Plenty of hydration including IV flui d if possible (use isotonic solution) next 1-2 days. Avoid hypovolemia and hypotension. 8. Initiate DVT prevention therapy. 9. Avoid hypoglycemia, serum glucose goa l during hospitalization: 140-180. 10. Long-term HgA1c goal less than 7. 11. Start statin if not on it and no abs olute contraindication, long-term LDL goal less than 70. 12. Head of bed up 30 degrees if possibl e. 14. Telemetry monitoring. Consider detention cardiac monitoring, i.e. MCOT (mobile cardiac outpatient telemetry) or ICM (insertable panel monitor, e.g. LINQ), if never had intermediate frame tender cardiac monitoring done previously. And if found to have atrial flutter or fibrillation, should consider anticoagulation therapy if no contraindication. fall precaution. Chart reviewed I have spent more than 50% educating patient about potential diagnosis and neurological evaluation and coordinating care with patient's treatment team. Total time spent (including chart review and coordination of care): 60 min (this includes chart review). Results & Data Vital Signs (Past 12 Hours) Vital Signs Temp Pulse Pulse Resp BP BP Pulse Ox 10/31/23 07:05 36.6 C 70 17 146/79 H 98 10/31/23 03:28 36.9 C 70 18 120/77 94 10/31/23 00:11 64 10/30/23 22:46 36.9 C 72 18 121/71 96 O2 Del Method 10/31/23 07:05 Room Air 10/31/23 03:28 Room Air 10/31/23 00:11 10/30/23 22:46 Room Air PG Care Time/CCT Total # of Minutes Spent Total Time Spent with Patient: Total time spent is greater than 50% in coordination of care (as documented) at patient's floor/unit and/or counseling patient: Coding Level of Care Code 50132 IN/OBS CONSULT LVL 4,60M Diagnoses Acute CVA (cerebrovascular accident) I63.9
--- NOTE | 2023-10-31 10:26 | Pharmacy Report ---
- Date of Service October 31, 2023 - Pharmacy CVA/TIA Medication Review Medications to Prevent Stroke handout has been added to the patients discharge packet. Antiplatelet(s) * Aspirin 81 mg PO daily * Clopidogrel 75 mg PO daily Cholesterol * High intensity statin: atorvastatin 80 mg daily DVT Prophylaxis * SCD knee Therapeutic Anticoagulation * No history of Afib/Aflutter noted Type 2 Diabetes * Patient has T2DM, but per Dr. Ames, a diabetes medication with proven CVD benefit will be deferred to their outpatient provider due to familiarity with risks/benefits of such therapies. "Medications to prevent stroke" handout has already been added to the patient's discharge packet, which instructs the patient to follow up with their outpatient provider to evaluate which diabetes medication with proven CVD benefit is best for them
[2023-10-31 10:44] VITALS: RESP 18; TEMP 98.1; O2SAT 96
--- NOTE | 2023-10-31 12:51 | Discharge Summary ---
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 With vertebral artery dissection. Was given 324 mg aspirin in the ED prior to admission, continued with 81 mg daily Had been on 40 mg atorvastatin daily, increased to 80 mg daily - A1C stable, PT/INR WNL, lipid panel WNL - Echo showed no significant valvular disease, Grade 1 diastolic dysfunction, EF 65-70% - Neurology consulted - Continue DAPT x 90 days with ASA and Plavix with transition to single therapy - can consider checking for renal artery stenosis in future - can consider exterminator termite cardiac monitoring if needed - PT/OT recommending d/c home with assistance from spouse as needed and home health services from the [facility] (order placed by ) (2) Cat bite of forearm: Patient was bitten by her cat on 10/29/2023 and has a small healing skin tear with surrounding erythema Patient confirms cat is up-to-date on vaccinations including rabies and patient had her last tetanus booster last year Was started on Unasyn on admission due to nausea/vomiting from CVA Transition her to p.o. Augmentin upon discharge to be continued for 3 days erythema improved (3) HTN (hypertension): Noted to be significantly hypertensive on admission Received 2 doses 10 mg IV labetalol in the ED due to significant hypertension with systolic blood pressures in the 240s Continued permissive hypertension as outlined in acute CVA plan - continue home amlodipine on d/c (4) Diabetes mellitus: Held metformin Monitor BSG ACHS, goal is [id number] Start CF of 50 and CR of 15 ACHS for now - A1C 10/31/23 6.4% Adjust regimen as needed - continue home metformin on d/c - discussed with pharmacy recommend SGLT2i or GLP-1, deferring to PCP Plan Chronic stable diagnoses: hypothyroidism - continue home levothyroxine overactive bladder - continue Gemtesa depression - continue Cymbalta Glaucoma - continue Cosopt Discharge home 10/31/23 with home PT via [facility] where patient resides. CM sent order to the [facility]. Notes For Next Care Provider Discussed with pharmacy during hospitalization, recommend SGLT2i or GLP-1. Deferring to PCP at this time. Recent A1C 6.4%. Continue DAPT x 90 days with ASA and Plavix with transition to single therapy (either ASA or plavix). Can consider checking for renal artery stenosis in future and can consider exterminator termite cardiac monitoring if needed. Medication Changes From Visit Atorvastatin changed from 40 mg daily to 80 mg daily Aspirin 81 mg PO daily Clopidogrel 75 mg PO daily Admission HPI Per Admitting Provider Ann is an 83-year-old female with a past medical history significant for hypertension, DMII, hyperlipidemia, hypothyroidism, depression, and glaucoma who presented to [facility] ED on 10/30/2023 with complaints of dizziness and hypertension which initially started on 10/26/2023. On arrival to the ED she was noted to be hypertensive at 216/97 but otherwise stable. Labs including CBC, CMP, and high-sensitivity troponin were unremarkable. CT of the head/brain without contrast was read as a 3 cm acute to subacute appearing ischemic infarct of the right PICA vascular distribution. No acute intracranial hemorrhage or midline shift. Chest x-ray was read as negative for acute findings. Prior to admission the patient had been given 1 L normal saline, 5 mg per oh chlor perazine, 4 mg IV Zofran, 25 mg p.o. meclizine, 25 mg diphenhydramine, 324 mg aspirin, and 2 doses of 10 mg IV labetalol. Patient was sitting in bed in no acute distress at time of exam with her sitting bedtime, history is obtained from both. The patient states that she initially felt mildly lightheaded/dizzy on 10/26/2023. Starting on 10/27/2023 the patient's symptoms significantly increased including lightheaded/dizziness with a sensation that the room was spinning at times, nausea with nonbloody emesis, intermittent headache, and right-sided upper extremity weakness. Her dizziness became so severe that she was concerned she would fall but did not actually fall at home. States that she has not been on the amlodipine for some time, has continued her home atorvastatin, metformin, and confirms she has not been on outpatient antihypertensives recently. Denies recent changes in vision, hearing, smell, but feels like her taste has been off over the past few days. Denies recent chest pain, shortness of breath, cough, abdominal pain, dysuria/hematuria, diarrhea, lower extremity swelling. When asked, she states that the move on right forearm erythema is due to a cat bite from her home cat which occurred yesterday (10/29/2023). She confirms that her cat is up-to-date on vaccinations including rabies and states that she received a tetanus booster last summer as her cat bit her on the leg. Denies recent fever/chills or pain at the site of the bite. Confirms she has no history of antibiotic allergies. From she is a full code and would want her to make medical decisions for her if she can make them herself. Please refer to Dr. Dougherty's attestation for any changes to the treatment plan Admission Exam Per Admitting Provider General: In no acute distress, stated age, well-nourished, nontoxic-appearing HEENT: Normocephalic, atraumatic, no scleral icterus, left pupil is misshapen from previous cataract surgery with right pupil round and reactive to light, moist mucus membranes, trachea midline, no thyromegaly Chest/Pulm: No respiratory distress, symmetrical chest expansion, clear breath sounds throughout Cardiac: RRR, no murmurs noted Abdomen: Negative for ascites and bruising, normoactive bowel sounds, soft, non- tender to palpation throughout Musculoskeletal: Symmetrical and without signs of acute trauma Extremities: Radial, dorsalis pedis, and posterior tibial pulses are intact and symmetrical, no edema noted in the BL LE's Skin: Patient with small scab on the right medial forearm due to recent cat bite with surrounding erythema without signs of drainage or fluctuance, no signs of tracking approximately Neuro: Alert and oriented to person, place, month, year, and president, no focal defects, CN II-XII tested and intact, positive pronator drift in the right upper extremity compared to left, 4+ strength in the right upper extremity with 5/strength in the left upper extremity, 5+ strength in the bilateral lower extremities, no tremors noted Psych: No acute distress, calm and cooperative during the exam Discharge Exam The patient is awake, alert and oriented 3, well developed and well nourished, normocephalic and atraumatic, in no acute distress. Non-toxic appearing. HEENT- EOMI, mucous membranes moist. Hearing grossly intact. Heart-normal S1 and S2. No murmurs, rubs or gallops. Lungs-clear bilaterally, no respiratory distress, no accessory muscle use. Abdomen-normal bowel sounds and soft. No ascites noted. Non-tender. Extremities- no clubbing, cyanosis, or edema. Small scab and improved erythema with pen markings of right medial forearm. Neuro- no focal defects, CN II-XII tested and intact, 5+ strength in b/l UE, 5+ strength in the bilateral lower extremities, no tremors noted Rheumatologic-normal range of motion. Psychiatric-normal affect. Discharge Plan Discharge Items Patient Disposition: Home - Home Health Services Reason For Visit: ACUTE ISCHEMIC CVA, DIZZINESS Discharge Diagnosis: 1. Cerebrovascular accident 2. Cat bite of forearm 3. Hypertension 4. Diabetes mellitus Condition on Discharge: Good Activity: Per Instructions section Activity Comment: With home PT services Lifting: Gradually increase as tolerated Exercise/Sports: Gradually increase as tolerated Weightbearing: Full weightbearing Non-emergency contact: Primary Care Provider Call non-emergency contact if: you have any medication questions, your symptoms worsen, you have a fever, your wound has increased redness and your wound has increased drainage Follow-up/Referrals: Todd Dillon MD [Resident] - 11/05/23 12:45 pm (Dr. Blevins did not have any appts. I made an appt. with Dr. Dillon on 11/05/23 at 1245. ) Diet: Regular Addtl Attending Provider Instructions: Your medication changes after your CVA are as followed and sent to your pharmacy: - Atorvastatin changed from 40 mg daily to 80 mg daily - Aspirin 81 mg PO daily - Clopidogrel 75 mg PO daily You will continue aspirin and clopidogrel both for 90 days and then transition to one of them. You are to follow up with your PCP for potential change or addition of a diabetes medication - recommend SGLT2i or GLP-1. Your A1C was 6.4% during hospitalization. You are to take the antibiotic, Augmentin, for 3 days for your cat bite. Pending Studies at Discharge: No Stand-Alone Forms: My [facility] Calsys, Medications to Prevent Stroke Medications and DC Order Prescriptions: New clopidogrel 75 mg Tablet 75 mg PO QAM Qty: 30 0RF aspirin 81 mg Tablet,Delayed Release (Dr/Ec) 81 mg PO DAILY Qty: 30 0RF atorvastatin 80 mg tablet 80 mg PO QAM Qty: 30 0RF amoxicillin-pot clavulanate [Augmentin] 500-125 mg tablet 1 tab PO BID 3 Days Qty: 6 0RF Continued duloxetine [Cymbalta] 20 mg capsule,delayed release(DR/EC) 20 mg PO BID Rx Instructions: written for 20 mg po bid levothyroxine 100 mcg capsule 100 mcg PO QAM olmesartan [Benicar] 20 mg tablet 20 mg PO UD Rx Instructions: 20 mg po daily. Patient didnt seem sure of the medication, no fill history available. metformin 500 mg tablet 500 mg PO BID dorzolamide-timolol 22.3-6.8 mg/mL drops 1 drp OPB BID amlodipine 5 mg tablet 5 mg PO UD Rx Instructions: 5 mg po daily. Patient didnt seem sure about medication, last filled Feb 2023 for 30 day supply mirabegron [Myrbetriq] 50 mg tablet extended release 24 hr 50 mg PO UD Rx Instructions: took up to last week and stopped for procedure this week. Isn't sure if they'll restart her on it or not. Take one tablet daily. Discontinued atorvastatin 40 mg tablet 40 mg PO QAM Discharge Orders: Discharge Order (Routine); Ordered 10/31/23 Ordered By: Mary Jo Munoz/Other Patient Handouts: Managing Type 2 Diabetes, Symptoms of Stroke, What Is Ischemic Stroke? Admission Data Admit Date/Time: 10/30/23 11:14 Attending Provider: Harinder Lozano Admit Provider: Jose Manuel Dougherty Primary Care Provider: Indigo Blevins Other Providers: Jose Manuel Dougherty; Russell Mendieta Other Interventions: Discharge Summary Assessment (RN) Last Done: 10/31/23 14:20 Hospital Stay Data Consultations 10/30/23 11:23 ED Decision to Admit Stat 10/30/23 11:54 Consult Neurology Routine Diagnostic Imagining Performed Chest X-Ray 10/30/23 09:35 XR chest 1V portable HISTORY: dizziness COMPARISON: Chest 04/15/2021. FINDINGS: No pneumothorax. No pleural effusions. The lungs are clear. Prior cholecystectomy. The cardiac silhouette remains top normal in size. No evidence for pulmonary edema. No acute fractures. Mild elevation of the right hemidiaphragm. Degenerative changes within the right shoulder. IMPRESSION: No acute process. ACT 112: Negative or not required by law. Electronically signed by: Saturnino Singer M.D. 10/30/2023 10:[address] 10/30/23 09:35 CT head/brain wo con CLINICAL HISTORY: 83 years-old Female with HTN, headache, dizziness. Acute hypertension with headache and dizziness TECHNIQUE: Multiple axial CT images of the head were obtained without contrast. A dose lowering technique was utilized adhering to the principles of ALARA. CT DOSE: 547.75 mGy.cm COMPARISON: 01/02/2022. FINDINGS: No acute intracranial hemorrhage, midline shift, intracranial mass, hydrocephalus, or abnormal extra-axial collection. Involutional changes with suggestion of mild chronic microvascular ischemic disease. There is a 3 cm ill- defined hypodense focus noted involving the medial, mid to inferior aspects of the right cerebellar hemisphere The calvarium is intact. Postoperative changes of the left globe redemonstrated. The paranasal sinuses, mastoid air cells, and middle ear cavities are clear. IMPRESSION: 1. 3 cm acute to subacute appearing ischemic infarct of the right PICA vascular distribution. 2. No acute intracranial hemorrhage or midline shift. ACT 112: Negative or not required by law. The above report was generated using voice recognition software. It may contain grammatical, syntax or spelling errors. Electronically signed by: Cameron Reynolds M.D. 10/30/2023 10:47 AM Brain MRI 10/30/23 11:46 Exam(s): MRI HEAD Without Contrast EXAM: MR Head Without Intravenous Contrast CLINICAL HISTORY: Reason for exam: CVA on CT head/brain wo con. TECHNIQUE: Magnetic resonance images of the head/brain without intravenous contrast in multiple planes. COMPARISON: Reference is made to prior CT performed earlier on the same date. FINDINGS: Brain: Acute infarction involving the medial aspect of the right cerebellar hemisphere. No acute intracranial hemorrhage. Moderate cerebral volume loss. Ventricles: Unremarkable. No ventriculomegaly. Bones/joints: Unremarkable. No acute fracture. Sinuses: Unremarkable as visualized. No acute sinusitis. Mastoid air cells: Unremarkable as visualized. No mastoid effusion. Orbits: Unremarkable as visualized. IMPRESSION: Acute right cerebellar hemispheric infarct. Electronically signed by: Suleiman Perdomo MD 10/30/23 22:23 PM Head CTA 10/30/23 11:46 CTA ANGIOGRAPHY OF THE HEAD CLINICAL HISTORY: acute CVA on CT head/brain COMPARISON STUDY: Head CT performed earlier today. TECHNIQUE: Helical axial images of the head were obtained following uneventful intravenous administration of 118 cc of Optiray. Sagittal and coronal reconstructions were viewed as well as maximal intensity projections on an independent 3-D workstation. Automated exposure control was utilized for the study. A dose lowering technique was utilized adhering to the principles of ALARA. FINDINGS: There is abrupt cut off of the right posterior inferior cerebellar artery on image 46 of 237 which corresponds to the infarct shown within the right cerebellar hemisphere on head CT performed earlier today. No additional sites of vessel occlusion are identified. No intracranial aneurysm. There is moderate stenosis within the proximal left middle cerebral artery. There is moderate to severe stenosis at the origin of the left P1 segment. There is no intracranial aneurysm. IMPRESSION: 1. 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 No additional sites of vessel occlusion within the intracranial circulation. 2. Multifocal stenoses within the intracranial circulation, as described above. ACT 112: Negative or not required by law. Electronically signed by: Yash Smith M.D. 10/30/2023 12:41 PM Neck CTA 10/30/23 11:46 NECK CTA HISTORY: acute CVA on CT head/brain TECHNIQUE: Multiaxial CT images of the neck were performed following the intravenous administration of contrast to evaluate the major cervical vessels. 3D/MIP images were also obtained. Sagittal and coronal reformats were reviewed. All measurements were calculated based on NASCET criteria. A dose lowering technique was utilized adhering to the principles of ALARA. COMPARISON STUDY: Head CT 10/30/2023. FINDINGS: The aortic arch and proximal great vessels are widely patent. There is again noted a focal hypodensity within the inferior right cerebellar hemisphere consistent with the acute to subacute infarct. There is focal high- grade stenosis/occlusion within the distal right posterior inferior cerebellar artery likely corresponding to the area of infarct. There is mild irregularity within the lumen of the mid right posterior inferior cerebellar artery. In addition, there is multifocal areas of high-grade stenosis/occlusion within the proximal right vertebral artery from the takeoff to the level of the C6 vertebral body. This is highly suspicious for a vertebral artery dissection. The mid to distal right vertebral artery appears patent. Mild irregularity within the distal vertebral arteries at the C1-C2 levels as well as mild irregularity in the mid to distal bilateral internal carotid arteries. This favors fibromuscular dysplasia. Mild calcified plaque within the bilateral carotid bifurcations. However, no significant stenosis, occlusion, or dissection within the bilateral common carotid or internal carotid arteries. IMPRESSION: 1. 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 2. There is again noted a focal hypodensity within the inferior right cerebellar hemisphere consistent with the acute to subacute infarct. There is focal high- grade stenosis/occlusion within the distal right posterior inferior cerebellar artery likely corresponding to the area of infarct. 3. No significant stenosis, occlusion, or dissection within the carotid arteries. 4. Mild irregularity within the distal vertebral arteries and mid to distal bilateral internal carotid arteries suggestive of fibromuscular dysplasia. ACT 112: Negative or not required by law. Electronically signed by: Saturnino Singer M.D. 10/30/2023 12:33 PM Discharge Instructions Given to Patient (Per Discharging Provider) Your medication changes after your CVA are as followed and sent to your pharmacy: - Atorvastatin changed from 40 mg daily to 80 mg daily - Aspirin 81 mg PO daily - Clopidogrel 75 mg PO daily You will continue aspirin and clopidogrel both for 90 days and then transition to one of them. You are to follow up with your PCP for potential change or addition of a diabetes medication - recommend SGLT2i or GLP-1. Your A1C was 6.4% during hospitalization. You are to take the antibiotic, Augmentin, for 3 days for your cat bite. Supervising Physician Co-Signing Physician Notes Patient was seen and examined independently I discussed the case with Mary Jo BUCKNER I reviewed pertinent past medical social family history and also the plan of care and agree with the plan of care. Pt is doing well, cat bite is mildly erythema. will be home on antibiotics cardiac is regular neuro is non focal home with 90 days of DAPT good control of risk factors follow up with primary care It required greater than 30 minutes to prepare this patient for discharge. Any exceptions will be noted below Total Time Total Time Spent Total Time Spent (In Minutes): 60 Coding Level of Care Code None Diagnoses Acute CVA (cerebrovascular accident) I63.9 Cat bite of forearm S51.859A; W55.01XA HTN (hypertension) I10 Diabetes mellitus E11.9
[2023-10-31] MEDS ORDERED: STROKE PATIENT DISCHARGE STA (14:05)
[2023-10-31 14:21] VITALS: BP 120/77; PULSE 63
--- NOTE | 2023-10-31 18:16 | Billing Data ---
Date of Service October 31, 2023 Coding Level of Care Code 57988 INP/OBS DISCH >30 MIN
== END 2023-10-31 15:28 | disposition home health service (06) | DRG 64 ==
LOC: ED 09:20 → EDINP 11:14 → SUATTDRO 11:14 → 2S 14:28
DX: E03.9 Hypothyroidism, unspecified; Z86.16 Personal history of COVID-19; Z79.899 Other long term (current) drug therapy; S51.811A Laceration without foreign body of right forearm, initial encounter; E78.5 Hyperlipidemia, unspecified; H40.9 Unspecified glaucoma; W55.01XA Bitten by cat, initial encounter; Z79.84 Long term (current) use of oral hypoglycemic drugs; I63.331 Cerebral infarction due to thrombosis of right posterior cerebral artery; I77.74 Dissection of vertebral artery; F32.A Depression, unspecified; I10 Essential (primary) hypertension; E11.9 Type 2 diabetes mellitus without complications; Z79.890 Hormone replacement therapy